=== PATIENT | male | born 1985 | race Two or more races ===

== ENCOUNTER 2016-09-25 10:26 | Emergency (ER) | payer SELFPAY ==
[2016-09-25 10:35] VITALS: TEMP 98.1
[2016-09-25] MEDS ORDERED: NS 1,000 ML IV ONE ×2 (10:47)
[2016-09-25] MEDS ORDERED: ONDANSETRON 4 MG/2 ML VIAL IVP ONE (10:47)
--- NOTE | 2016-09-25 10:47 | EDPHY ---
H & P Time Seen by Provider: 09/25/16 10:38 HPI/ROS: CHIEF COMPLAINT: Nausea vomiting diarrhea HISTORY OF PRESENT ILLNESS: Patient had food from [employer] the yesterday and his daughter got a little bit sick. Starting late last night he had multiple episodes of vomiting diarrhea including today. Not better worse with oral intake. No blood or coffee grounds and no melena. Some abdominal cramping but minimal right now. Symptoms moderate. REVIEW OF SYSTEMS: Eye: no change in vision ENT: no sore throat Cardiac: no chest pain or syncope Pulmonary: no cough or SOB Abdomen: HPI Musculoskeletal: no back pain Skin: no rash Neuro: no headache Constitutional: no fever : no urinary symptoms A comprehensive 10 point review of systems is otherwise negative aside from elements mentioned in the history of present illness. PAST MEDICAL HISTORY: Negative Social history: Here with family, illness and daughter as described above. General Appearance: Alert and conversant, cooperative. Eyes: No scleral icterus. ENT, Mouth: Slightly dry mucous membranes Respiratory: Normal respiratory effort, breath sounds equal, lungs are clear to auscultation. Cardiovascular: Regular rate and rhythm. Gastrointestinal: Abdomen is soft and non tender. No Archibald sign and no McBurney's point tenderness. Neurological: Alert and oriented x3. Normally conversant. Face symmetric, normal movement and sensation in all extremities. Skin: Warm and dry, no rashes. Musculoskeletal: No peripheral edema and no joint swelling. Psychiatric: Not agitated Emergency Department course/MDM: IV normal saline 2 L and Zofran 4 mg IV for vomiting and dehydration. Clinical presentation not suggestive of acute surgical abdominal process. Clinical presentation not suggestive of acute metabolic abnormality. Smoking Status: Never smoked Constitutional: Initial Vital Signs Temperature (C) 36.7 C 09/25/16 10:33 Heart Rate 84 09/25/16 10:33 Respiratory Rate 20 09/25/16 10:33 Blood Pressure 118/77 09/25/16 10:33 O2 Sat (%) 96 09/25/16 10:33 O2 Delivery Mode Room Air Allergies/Adverse Reactions: No Known Allergies Allergy (Verified 09/25/16 10:32) Home Medications: Medication Instructions Recorded Ondansetron Odt [Zofran Odt] 4 mg PO Q4PRN #6 tab 09/25/16 Medical Decision Making Differential Diagnosis: Differential considered including but not limited to gastroenteritis, food poisoning, metabolic abnormality, bowel obstruction. Departure - Departure Disposition: Home, Routine, Self-Care Clinical Impression: Vomiting and diarrhea Condition: Good Instructions: Acute Nausea and Vomiting (ED) Referrals: clinic, lizzette [Other] - As per Instructions Stand Alone Forms: Work Excuse Prescriptions: Ondansetron Odt [Zofran Odt] 4 mg PO Q4PRN #6 tab
[2016-09-25] MEDS ORDERED: DILTIAZEM 25 MG/5 ML VIAL IVP ONE (11:57)
[2016-09-25 12:22] VITALS: BP 141/81; PULSE 85; RESP 16; O2SAT 94
== END 2016-09-25 12:22 | disposition home or self-care (01) ==
DX: R11.2 Nausea with vomiting, unspecified (principal); R19.7 Diarrhea, unspecified
CPT/HCPCS: 96374; J2405

== ENCOUNTER 2016-12-27 10:29 | Emergency (ER) | payer MEDICAID ==
[2016-12-27 10:34] VITALS: RESP 16
--- NOTE | 2016-12-27 11:40 | EDPHY ---
H & P Time Seen by Provider: 12/27/16 10:40 HPI/ROS: CHIEF COMPLAINT: Left ankle pain x1 week HISTORY OF PRESENT ILLNESS: 31-year-old male presents emergency department complaining of left ankle pain x1 week. Patient reports he is on his feet a lot and kicks heavy boxes a lot. He does not recall a specific incident that caused this to start. He reports lateral ankle pain, worse with weight-bearing , no numbness or tingling, no fevers or chills. No other complaints. Smoking Status: Never smoked Physical Exam: General appearance: alert no distress Left ankle: There is tenderness over the lateral ankle. No swelling. TTP to ATFL. Ankle joint is stable and there is no tenderness over the achilles tendon. The foot is non-tender without swelling. No TTP over 5th metatarsal. Neurologic exam: The patient has normal sensation and motor function distal to the injury. Vascular exam: Normal pulses and capillary refill in the foot Constitutional: Initial Vital Signs Temperature (C) 36.7 C 12/27/16 10:31 Heart Rate 79 12/27/16 10:31 Respiratory Rate 16 12/27/16 10:31 Blood Pressure 120/67 12/27/16 10:31 O2 Sat (%) 96 12/27/16 10:31 Allergies/Adverse Reactions: No Known Allergies Allergy (Verified 09/25/16 10:32) Home Medications: Medication Instructions Recorded Ondansetron Odt [Zofran Odt] 4 mg PO Q4PRN #6 tab 09/25/16 MDM/Departure - MDM Imaging Results: Imaging Impressions Ankle X-Ray 12/27/16 10:45 Impression: No visible etiology for the patient's pain. Imaging: I viewed and interpreted images myself - Depart Disposition: Home, Routine, Self-Care Clinical Impression: Left ankle sprain Qualifiers: Encounter type: initial encounter Involved ligament of ankle: unspecified ligament Qualified Code(s): S93.402A - Sprain of unspecified ligament of left ankle, initial encounter Condition: Good Instructions: Ankle Sprain (ED) Additional Instructions: Rest, ice, elevate, take 600 mg of ibuprofen every 8 hours with food for 3-5 days, wear ankle stirrup for comfort. Follow up with orthopedist for symptoms that are not improving next 7-10 days. Return to the emergency department for worsening symptoms, new symptoms or concerns. Stand Alone Forms: Work Excuse Referrals: Elfego Bond MD [Medical Doctor] - As per Instructions (Orthopedist on-call )
[2016-12-27 12:09] VITALS: BP 113/70; PULSE 74; TEMP 98.2; O2SAT 95
== END 2016-12-27 12:10 | disposition home or self-care (01) ==
DX: S93.402A Sprain of unspecified ligament of left ankle, initial encounter (principal); W22.8XXA Striking against or struck by other objects, initial encounter
CPT/HCPCS: L4350

== ENCOUNTER 2017-01-15 14:30 | Emergency (ER) | payer OTHER, MEDICAID ==
[2017-01-15 14:53] VITALS: TEMP 98.1
--- NOTE | 2017-01-15 17:22 | EDPHY ---
H & P Smoking Status: Never smoked Time Seen by Provider: 01/15/17 15:49 HPI/ROS: CHIEF COMPLAINT: Right thumb laceration HISTORY OF PRESENT ILLNESS: 31-year-old male presents to the emergency department with laceration to the right thumb. Patient was at work and accidentally cut his thumb with a knife at work around noon today. The patient is right-hand dominant. Denies any other trauma or injury. He initially tried to apply skin glue however it was continuing to bleed and he came to the emergency department for evaluation. ROS: Denies numbness or tingling in his fingers, retained foreign body or other injury. (Lisa Fall) Past Medical/Surgical History: Negative (Lisa Fall) Social History: Single and lives in [place] (Lisa Fall) Physical Exam: On examination the patient has a 2 cm flap laceration to the palmar aspect of the right thumb between the MCP joint and PIP joint. No active bleeding noted. No evidence of retained foreign body. Full range of motion of his fingers. The other fingers do not appear injured. No palpable bony tenderness. No nail injury noted. No tendon injury noted. (Lisa Fall) Constitutional: Initial Vital Signs Temperature (C) 36.7 C 01/15/17 14:45 Heart Rate 85 01/15/17 14:45 Respiratory Rate 18 01/15/17 14:45 Blood Pressure 109/86 H 01/15/17 14:45 O2 Sat (%) 96 01/15/17 14:45 O2 Delivery Mode Room Air Allergies/Adverse Reactions: No Known Allergies Allergy (Verified 01/15/17 14:47) Home Medications: Medication Instructions Recorded NK [No Known Home Meds] 01/15/17 MDM/Departure - MDM Procedures: Laceration repair. Verbal consent was obtained from the patient. The 2 cm flap laceration on the right thumb was anesthetized using digital block using 1% lidocaine without epinephrine and 0.5% bupivacaine without epinephrine. The wound was irrigated with saline, draped and explored to its base with a gloved finger. There were no deep structures involved. No tendon injury was identified. The wound was repaired with 4 0 Ethilon, 4 sutures. The wound repair was simple. The procedure was performed by myself. (Lisa Fall) ED Course/Re-evaluation: 31-year-old male presents to the emergency department with right thumb laceration. The wound was repaired, see procedure note. The patient's tetanus shot is current. His wound was repaired, see procedure note. He was given wound care precautions. (Lisa Fall) Patient evaluated and managed by PA. I agree with plan of care. I am secondary supervising physician. (Stacy Mora) - Depart Disposition: Home, Routine, Self-Care Clinical Impression: Laceration of right thumb Condition: Good Instructions: Care For Your Stitches (ED), Laceration (ED), Acute Wounds (ED) Additional Instructions: Wound Care Follow-Up: Removal of sutures in 10 days. Suture removal is complimentary in uncomplicated cases. Infection or abnormal findings would require reevaluation by the MD. In that case, you may be billed. Return if you notices any signs or symptoms of infection such as redness, swelling, increased pain, fever, purulent drainage. Keep wound dry, clean and protected especially while working. Ibuprofen 600 mg every 8 hours as needed for pain. Referrals: DEVIN PEREZ [Other] - As per Instructions
[2017-01-15 17:49] VITALS: BP 118/73; PULSE 78; RESP 16; O2SAT 97
== END 2017-01-15 17:49 | disposition home or self-care (01) ==
PROC: 0HQFXZZ Repair Right Hand Skin, External Approach (ICD-10-PCS; principal; 2017-01-15)
DX: S61.011A Laceration without foreign body of right thumb without damage to nail, initial encounter (principal); W26.0XXA Contact with knife, initial encounter; Y92.69 Other specified industrial and construction area as the place of occurrence of the external cause; Y99.0 Civilian activity done for income or pay; Y93.89 Activity, other specified